=== PATIENT | female | born 1985 | race Caucasian/White ===

== ENCOUNTER 2023-01-30 13:54 | Outpatient (REF) | payer OTHER, SELFPAY ==
[2023-01-30 18:19] LABS: Alanine Aminotransferase 20 U/L (0-31); Albumin Level 4.2 g/dL (3.5-5.0); Alkaline Phosphatase 42 U/L (39-117); Aspartate Amino Transferase 25 U/L (5-31); Bilirubin Direct 0.3 mg/dL (0.0-0.5); Bilirubin Total 0.8 mg/dL (0.0-1.0); Total Protein 6.7 g/dL (6.5-8.0)
[2023-01-31 04:06] LABS: HIV AB/AG Nonreactive (Nonreactive); HIV Num 1 0.06 S/CO (0.00-0.99)
[2023-01-31 04:21] LABS: ~HepC Num1 2.94 S/CO (0.00-0.79); ~Hepatitis C Antibody Reactive (Nonreactive)
== END 2023-01-30 13:55 | disposition home or self-care (01) ==
LOC: HO.CHCLDS 13:54
PROVIDERS: Visit Provider Family Medicine
DX: Z11.4 Encounter for screening for human immunodeficiency virus [HIV] (principal); F11.20 Opioid dependence, uncomplicated
CPT/HCPCS: 36415; 80076; 86803; 87389; 87522

== ENCOUNTER 2024-09-10 15:30 | Outpatient (REF) | payer OTHER, SELFPAY ==
--- OUTSIDE RECORDS SUMMARY | 2024-09-10 18:24 | XMS_ITS | Encounter Summary ---
Author Organization [employer] Address [address] [place] [address] [address] [place] [address] Care Team Providers Care Gis Geographer Name Role Phone Dian Zarate MD Primary Care Provider [phone] Encounter Details Date Type Department Care Team (Late st Contact Info) Description 05/01/2023 Abstract [facility] [address] [place] [id number] Yi Champion Social History Tobacco Use Types Packs/Day Years Used Date Smoking Tobacco: Never Assessed Comments Unknown Sex and Gender Information Value Date Recorded Sex Assigned at Female 04/11/2022 10:18 AM EDT Legal Sex Female 10:18 AM EDT Gender Identity Female 04/11/2022 10:18 AM EDT Sexual Orientation Straight 04/11/2022 10 :18 AM EDT documented as of this encounter Plan of Treatment Upcoming Encounters Date Type Department Care Team (Late st Contact Info) Description 10/07/2024 1:00 PM EDT Office Visit [facility] [address] [place] [address] Jagdeep Juarez MD [address] [place] [phone] documented as of this encounter Visit Diagnoses Not on filedocumented in this encounter Care Teams Gis Geographer Relationship Specialty Start Date End Date Dian Zarate MD [address] [place] [phone] PCP - General Family Medicine 05/28/12 documented as of this encounter
--- OUTSIDE RECORDS SUMMARY | 2024-09-10 18:24 | XMS_ITS | Clinical Summary ---
Author Organization [email or web address] Address [address] [facility] [address] [place] [address] Care Team Providers Care Test Preparer Name Role Phone Dian Zarate MD Primary Care Provider [phone] Allergies No known active allergies Medications cholecalciferol (Vitamin D-3) 50 MCG (1999) capsule take 1 capsule by oral route every day 2 Active fluocinolone (Synalar) 0.025 % cream apply by topical route 2 times every day to the affected area(s) 0 Active hydroCHLOROthiazi de (HYDRODiuril) 12.5 MG tablet take 1 tablet by oral route every day 2 Active ibuprofen 400 MG tablet take 1 tablet by oral route every 6 hours as needed as needed for pain 9 Active Elastic Bandages & Supports (Ankle Brace Kgryed-sb-Srq) misc Ankle brace - leg brace per previous EHR To use daily 6 Active Naloxone HCl (NARCAN NA) Administer into affected nostril(s). [place] 0.1 milliliter by intranasal route in 1 nostril may repeat dose every 2-3 minutes as needed alternating nostrils with each dose 0 Active buprenorphine-nal oxone (Suboxone) 12-3 MG per sublingual filmIndications:O pioid dependence, uncomplicated (CMS/HCC) Place 1 Film under the tongue Once per day. Do not start before August 12, 2024. 28 Film 1 5 025 Active Active Problems Problem Noted Date Diagnosed Date Opioid dependence 07/13/2015 Encounters Date Type Department Care Team Description 08/12/2024 1:45 PM EST Office Visit [facility] [address] [place], [place] [phone] Jagdeep Juarez MD Opioid type dependence, continuous (CMS/HCC) (Primary Dx) 08/12/2024 Telephone [facility] [address] [place], [place] [phone] Jagdeep Juarez MD 08/12/2024 Travel 08/07/[address] [facility] [address] [place], [place] [phone] Madeline Viera RN Opioid dependence, uncomplicated (CMS/HCC) 06/17/2024 1:30 PM EST Office Visit [facility] [address] [place], [place] [phone] Jagdeep Juarez MD Opioid type dependence, continuous (CMS/HCC) (Primary Dx) 06/17/[address] [facility] [address] [place], [place] [phone] John Fontanez Recovery Supports 06/17/2024 Travel from Last 3 Months Immunizations Name Administration Dates Next Due Hep A, Adult 02/03/2009,04/15/2008 Hep B, adult 02/03/2009,05/20/2008,04/15/2008 Influenza, Split (incl. nick fied surface antigen) 02/21/2012 Pfizer Covid-19 Vaccine 12+ 12/03/2020, Tdap 12/25/2018 Social History Tobacco Use Types Packs/Day Years Used Date Smoking Tobacco: Never Assessed Comments Unknown Sex and Gender Information Value Date Recorded Sex Assigned at Female 04/11/2022 10:18 AM EDT Legal Sex Female 10:18 AM EDT Gender Identity Female 04/11/2022 10:18 AM EDT Sexual Orientation Straight 04/11/2022 10 :18 AM EDT Last Filed Vital Signs Vital Sign Reading Time Taken Comments Blood Pressure 134/84 11/01/2021 12:05 AM EDT Pulse 78 11/01/2021 12:05 AM EDT Temperature - - Respiratory Rate - - Oxygen Saturation - - Inhaled Oxygen Concentration - - Weight 94.7 kg (208 lb 12.8 oz) 022 12:05 AM EDT Height 167.6 cm (5' 6 ) 10/28/2021 12:0 5 AM EDT Body Mass Index 33.7 10/28/2021 12:05 AM EDT Plan of Treatment Upcoming Encounters Date Type Department Care Team (Late st Contact Info) Description 10/07/2024 1:00 PM EDT Office Visit [facility] [address] [place] [address] Jagdeep Juarez MD [address] [place] [address] Health Maintenance Due Date Last Done Comments Depression Screening 1983 SDOH Screening 1983 Alcohol/Substance Use Screening 1995 Tobacco Screening 1995 Family Planning (PISQ) 1998 Pap Smear 2004 Cervical Cancer Screening 2013 HPV/Cotest 2013 Mammogram 2023 COVID-19 Vaccine (3 - 2023-2 5 season) 2024 12/03/2020, 11/12/2020 Influenza Vaccine (#1) 2024 02/21/2012 DTaP/Tdap/Td Vaccines (2 - T d or Tdap) 12/25/2028 12/25/2018 Zoster Vaccines (1 of 2) 2033 RSV Patients and Patients Aged 60 years or older (1 - 1-dose 75+ series) 2058 Hepatitis A Vaccines Completed 02/03/2009, 04/15/2008 Hepatitis B Vaccines Completed 02/03/2009, 05/20/2008, 04/15/2008 HIV Screening Completed 01/30/2023 HIB Vaccines Aged Out No longer eligi ble based on patient's age to complete this topic HPV Vaccines Aged Out No longer eligi ble based on patient's age to complete this topic IPV Vaccines Aged Out No longer eligi ble based on patient's age to complete this topic Meningococcal Vaccine Aged Out No kita mark eligible based on patient's age to complete this topic Pneumococcal Vaccine: Pediatrics (0 to 5 Years) and At-Risk Patients (6 to 49) Years) Aged Out No longer eligible b ased on patient's age to complete this topic RSV under 20 months Aged Out No longe r eligible based on patient's age to complete this topic Rotavirus Vaccines Aged Out No longer eligible based on patient's age to complete this topic Procedures Procedure Name Priority Date/Time Associated Diagnosis Comments POCT JAZIEL-14 URINE DRUG SCREEN Routine 08/12/2024 2:45 PM EST Opioid type dependence, continuous (CMS/HCC) POCT JAZIEL-14 URINE DRUG SCREEN Routine 06/17/2024 1:44 PM EST Opioid type dependence, continuous (CMS/HCC) HIV ANTIBODY/ANTIGEN ([place] DPH) Routine 01/30/2023 1:58 PM EDT from Last 3 Months or Most Recently Relevant to Health Maintenance Results * POCT JAZIEL-14 Urine Drug Screen (08/12/2024 2:45 PM EST) Only the most recent of2 resultswithin the time period is included. THC Positive Cocaine Screen, Urine Negative Opiate Screen, Urine Negative Methamphetamine Screen Urine Negative Amphetamine Screen, Urine Negative Benzodiazepines Screen, Urine Negative Barbiturate Screen, Urine Negative Methadone Screen, Urine Negative Buprenophine Screen, Urine Positive TCA, Urine Negative MDMA Urine Negative ng/mL Oxycodone Screen, Urine Negative Phencyclidine (PCP), Urine Negative Propoxyphene, Urine Negative Urine Urine specimen obtained by clean catch procedure / Unknown 08/12/2024 2:45 PM EST Jagdeep Juarez MD POINT OF CARE TEST ENTER/EDIT OR DERABLES Final Result * HIV Ab/Ag ([place] DPH) (01/30/2023 1:58 PM EDT) HIV AB/AG Nonreactive Nonreactive [facility] Comment:HIV-1 p24 Ag and/or HIV-1/HIV-2 Ab not detected.A test result that is nonreactive does not exclude thepossibility of exposure to or infection with HIV-1 and/orHIV-2. Nonreactive results in this assay for individualswith prior exposure to HIV-1 and/or HIV-2 may be due toantigen and antibody levels that are below the limit ofdetection of this assay.The [employer] HIV Ag/Ab Combo assay result andsupplemental assay results should be interpreted inconjunction with the patient's clinical presentation,history and other laboratory results. If the results areinconsistent with clinical evidence, additional testing issuggested to confirm the result. 01/30/2023 1:58 PM EDT 01/30/2023 5:44 PM EDT us Jagdeep Juarez MD LAB BLOOD ORDERABLES Final Resul t [facility] [address] [place] [phone] from Last 3 Months or Most Recently Relevant to Health [place] [address] [facility] * Guarantor: Yoshi Livingston Account Type Relation to Patient Date of Phone Billing Address Personal/[place] [address] * Guarantor: Yoshi Livingston Account Type Relation to Patient Date of Phone Billing Address Personal/[place] [address] * Guarantor: Yoshi Livingston Account Type Relation to Patient Date of Phone Billing Address Personal/[place] [address] Care Teams Test Preparer Relationship Specialty Start Date End Date Dian Zarate MD [address] [place] [address] [place] [id number] PCP - General Family Medicine 05/28/12
--- OUTSIDE RECORDS SUMMARY | 2024-09-10 18:24 | XMS_ITS | Clinical Summary ---
Author Organization [facility] Address [address] [place] [address] Care Team Providers Care Re Examiner Name Role Phone Dian Zarate MD Primary Care Provider [phone] Allergies No known active allergies Medications buprenorphine-n aloxone (Suboxone) 8-2 mg per SL film 7 Active levonorgestreL (MIRENA) 21 mcg/24hr (up to 8 yrs) 52 mg IUD 1 Each by Intrauterine route once. 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 Overview (08/08/2024): DX:Fibroadenoma of both breasts Negative right breast biopsy 09/10/2014 History of drug abuse 08/08/2024 Overview (08/08/2024): DX:History of drug abuse (HCC) Dysplasia of cervix, low grade (LAWANDA 1) 9 Overview (08/08/2024): 09/08/2016 LAWANDA 1 underwent colpo and TCA treatments 07/11/2012 left breast fibroadenoma Hepatitis C 06/12/2002 Overview (08/08/2024): DX:Hepatitis C Surgical History Surgery Date Site/Laterality Comments BREAST LUMPECTOMY [id number] Bilateral PROCEDURE: ---- BREAST LUMP BIOPSY ---- OTHER SURGICAL HISTORY 2016 Bilateral PROCEDURE: PA STRABISMUS PREVIOUS EYE X INVOLVE EO [facility] Medical History Medical History Date Comments 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 DX: Fibroadenoma of both breasts Hepatitis C 06/12/2002 DX:Hepatitis C History of drug abuse 08/08/2024 DX:History of drug abuse (HCC) Family History Medical History Relation Name Comments Bladder Cancer Father No Known Problems Maternal Grandfather No Known Problems Maternal Grandmother Melanoma Mother Heart failure Paternal Grandfather Heart failure Paternal Grandmother Relation Name Status Comments Father Alive Maternal Grandfather Maternal Grandmother Mother Alive Paternal Grandfather Paternal Grandmother Social History Tobacco Use Types Packs/Day Years Used Date Smoking Tobacco: Former Smokeless Tobacco: Never Alcohol Use Standard Drinks/Week Comments No 0 (1 standard drink = 0.6 oz pur e alcohol) Comments Unknown Sex and Gender Information Value Date Recorded Sex Assigned at Not on file Legal Sex Female 12:13 AM EST Gender Identity Not on file Sexual Orientation Not on file Obstetrics History Last Filed Vital Signs Vital Sign Reading Time Taken Comments Blood Pressure 126/84 01/05/2023 2:51 PM EDT Pulse 92 01/05/2023 2:51 PM EDT Temperature - - Respiratory Rate - - Oxygen Saturation - - Inhaled Oxygen Concentration - - Weight 98.6 kg (217 lb 6.4 oz) 01/05/2023 2:51 P M EDT Height 165.1 cm (5' 5 ) 01/05/2023 2:51 PM EDT Body Mass Index 36.18 01/05/2023 2:51 PM EDT Plan of Treatment Upcoming Encounters Date Type Department Care Team (Late st Contact Info) Description 09/26/2024 4:10 PM EDT Appointment Radiology Department [address] [phone] 11/01/2024 2:30 PM EDT Office Visit Obstetrics and Gynecology - [place] [address] [place] [phone] Edwin Judge [facility] [address] [place] [phone] Health Maintenance Due Date Last Done Comments COVID-19 Vaccine (#1) 1988 DTaP,Tdap,and Td Vaccines (1 - Tdap) 2002 Hepatitis B Vaccines (1 of 3 - 19+ 3-dose series) 2002 Pneumococcal Vaccine: Pediatrics (0 to 5 Years) and At-Risk Patients (6 to 64 Years) (1 of 2 - PCV) 2002 Depression Screening 05/15/2022 Social Influencers of Health Screening 05/15/2022 Cervical Cancer Screening: HPV 11/03/2023 11/02/2018 Influenza Vaccine (#1) 2024 Breast Cancer Screening 09/12/2025 09/13/19, 09/13/2023 Hepatitis C Screening Completed 03/10/2017 HIV Screening Completed 05/14/2021 HIB Vaccines Aged Out No longer eligi ble based on patient's age to complete this topic HPV Vaccines Aged Out No longer eligi ble based on patient's age to complete this topic Hepatitis A Vaccines Aged Out No long er eligible based on patient's age to complete this topic IPV Vaccines Aged Out No longer eligi ble based on patient's age to complete this topic MMR Vaccines Aged Out No longer eligi ble based on patient's age to complete this topic Meningococcal ACWY Vaccine Aged Out N o longer eligible based on patient's age to complete this topic Meningococcal B Vacine Aged Out No lo nger eligible based on patient's age to complete this topic RSV Immunization Patients Under 20 months Aged Out No longer eligible b ased on patient's age to complete this topic Varicella Vaccines Aged Out No longer eligible based on patient's age to complete this topic Procedures Procedure Name Priority Date/Time Associated Diagnosis Comments SCREENING MAMMOGRAPHY BI 2-VIEW BREAST INC CAD Routine 09/13/2023 7:31 PM EDT Encounter for screening mammogram for malignant neoplasm of breast HIV SCREENING Routine 05/14/2021 HPV Routine 11/02/2018 HEPATITIS C SCREENING Routine 03/10/2017 from Last 3 Months or Most Recently Relevant to Health Maintenance Results * SCREENING MAMMOGRAPHY BI 2-VIEW BREAST INC CAD (09/13/2023 7:31 PM EDT) Anatomical Region Laterality Modality Radiographic Kathy ging 01/05/2023 3:23 PM EDT Narrative 09/20/2023 1:13 PM EDT This is a summary report. The complete report is available in the patient's medical record. If you cannot access the medical record, please contact the sending organization for a detailed fax or copy. Baseline screening, full field digital tomosynthesis mammography, reviewed with CAD. ?? The breast tissue is dense, limiting sensitivity. ??No suspicious mass, architectural distortion or suspicious calcifications are identified. IMPRESSION: : Dense breast tissue, limiting the sensitivity of mammography. No mammographic evidence of malignancy. BIRADS 1-Negative; N. 5 year breast cancer risk assessment 1.3 % Lifetime breast cancer risk assessment 14.5 % Breast cancer risk category Breast cancer risk not assessed Procedure Note Luis Monterroso MD - 01/29/2024 This is a summary report. The complete report is available in thepatient's medical record. If you cannot access the medical record, pleasecontact the sending organization for a detailed fax or copy. Baseline screening, full field digital tomosynthesis mammography, reviewedwith CAD. The breast tissue is dense, limiting sensitivity. Nosuspicious mass, architectural distortion or suspicious calcifications areidentified. IMPRESSION: : Dense breast tissue, limiting the sensitivity of mammography. Nomammographic evidence of malignancy. BIRADS 1-Negative; N. 5 year breast cancer risk assessment 1.3 % Lifetime breast cancer risk assessment 14.5 % Breast cancer risk category Breast cancer risk not assessed Result [facility] Edwin LANDRYM IMG XR PROCEDURES Final Result * HIV Screening (05/14/2021) [facility] HIV Screening Abstracted Result [facility] Provider HEALTH MAINTENANCE Final Result * Cervical Cancer Screening: HPV (11/02/2018) [facility] Cervical Cancer Screening: HPV Negative, Abstracted Result [facility] Provider HEALTH MAINTENANCE Final Result * Hepatitis C Screening (03/10/2017) [facility] Hepatitis C Screening Abstracted Result [facility] Provider HEALTH MAINTENANCE Final Result from Last 3 Months or Most Recently Relevant to Health Maintenance Insurance [facility] [place] [phone] [facility] [employer] [place] [id number] Care Teams Re Examiner Relationship Specialty Start Date End Date Dian Zarate MD [address] [place] [address] PCP - General 03/10/16
[2024-09-10 19:48] LABS: Alanine Aminotransferase 32 U/L (0-31); Albumin Level 4.2 g/dL (3.5-5.0); Alkaline Phosphatase 38 U/L (39-117); Aspartate Amino Transferase 33 U/L (5-31); Bilirubin Direct 0.2 mg/dL (0.0-0.5); Bilirubin Total 0.6 mg/dL (0.0-1.0); Total Protein 6.5 g/dL (6.5-8.0)
== END 2024-09-10 15:31 | disposition home or self-care (01) ==
LOC: HO.CHCLDS 15:30
PROVIDERS: Visit Provider Family Medicine
DX: F11.20 Opioid dependence, uncomplicated (principal)
CPT/HCPCS: 36415; 80076